=== PATIENT | male | born 1955 | race Caucasian/White ===

== ENCOUNTER 2016-08-15 12:00 | Emergency (ER) | payer BC ==
[2016-08-15 12:21] VITALS: BP 136/66
--- NOTE | 2016-08-15 12:30 | UC ---
Respiratory Complaint HPI - HPI Summary HPI Summary: Worsening cough, nasal drainage and chest congestion over the past week---awake at night coughing not sure about a fever - History of Current Complaint Chief Complaint: UCUpperExtremity Stated Complaint: ST/COUGH Time Seen by Provider: 08/15/16 12:07 Hx Obtained From: Patient Onset/Duration: Gradual Onset, Lasting Weeks - 1, Still Present Timing: Constant Severity Initially: Moderate Severity Currently: Moderate Character: Cough: Nonproductive Aggravating Factors: Recumbent Position Alleviating Factors: Upright Position Associated Signs And Symptoms: Positive: Nasal Congestion, Sinus Discomfort - Allergies/Home Medications Allergies/Adverse Reactions: Allergies Allergy/AdvReac Type Severity Reaction Status Date / Time Penicillins Allergy Intermediate Rash Verified 08/15/16 12:14 Home Medications: Home Medications Acetaminophen TAB* [Tylenol TAB*] 650 mg PO Q4H PRN 08/15/16 [History Confirmed 08/15/16] PMH/Surg Hx/FS Hx/Imm Hx Previously Healthy: Yes - Surgical History Surgical History: None - Family History Known Family History: Positive: None Family History: no known cardio vascular issues in family lineage - Social History Occupation: Retired - from [employer] Lives: With Family Alcohol Use: None Substance Use Type: None Smoking Status (MU): Former Smoker When Did the Patient Quit Smoking/Using Tobacco: AGE 16 Household Exposure Type: Cigarettes - Immunization History Most Recent Influenza Vaccination: FEB 2016 Review of Systems Constitutional: Negative Skin: Negative Eyes: Negative ENT: Sore Throat, Nasal Discharge Respiratory: Cough Cardiovascular: Negative Gastrointestinal: Negative Genitourinary: Negative Motor: Negative Neurovascular: Negative Musculoskeletal: Negative Neurological: Negative Psychological: Negative All Other Systems Reviewed And Are Negative: Yes Physical Exam Triage Information Reviewed: Yes Appearance: No Pain Distress, Ill-Appearing - appears older than stated age, Obese Vital Signs: Initial Vital Signs Temp 98.5 F 08/15/16 12:15 Pulse 84 08/15/16 12:15 Resp 20 08/15/16 12:15 BP 136/66 08/15/16 12:15 Pulse Ox 97 08/15/16 12:15 Vital Signs Reviewed: Yes Eye Exam: Normal Eyes: Positive: Conjunctiva Clear ENT Exam: Normal ENT: Positive: Normal ENT inspection, Hearing grossly normal, Pharynx normal, Nasal congestion, Nasal drainage, TMs normal. Negative: Tonsillar swelling, Tonsillar exudate, Trismus, Muffled/hoarse voice Dental Exam: Normal Neck exam: Normal Neck: Positive: Supple, Nontender, No Lymphadenopathy Respiratory Exam: Normal Respiratory: Positive: Chest non-tender, Lungs clear, Normal breath sounds, No respiratory distress, No accessory muscle use Cardiovascular Exam: Normal Cardiovascular: Positive: RRR, No Murmur, Pulses Normal, Brisk Capillary Refill Musculoskeletal Exam: Normal Musculoskeletal: Positive: Strength Intact, ROM Intact, No Edema Neurological Exam: Normal Neurological: Positive: Alert, Muscle Tone Normal Psychological Exam: Normal Skin Exam: Normal UC Diagnostic Evaluation - Laboratory O2 Sat by Pulse Oximetry: 97 Respiratory Course/Dx - Course Course Of Treatment: Zithromax, tessalon, albuterol, flonase, increase fluids, follow with PCP - Differential Dx/Diagnosis Differential Diagnosis/HQI/PQRI: Asthma, Bronchitis, Laryngitis, Lower Resp Infection, Sinusitis, Tuberculosis Provider Diagnoses: Bronchitis Discharge - Discharge Plan Condition: Stable Disposition: HOME Prescriptions: Albuterol HFA INHALER* [Ventolin HFA Inhaler*] 2 puff INH Q4H PRN #1 mdi PRN Reason: Cough Azithromycin TAB* [Zithromax TAB (Z-CONNOR) 250 mg #6 tabs] 2 tab PO .TODAY, THEN 1 DAILY #1 connor Benzonatate CAP* [Tessalon CAP*] 100 mg PO TID PRN #30 cap PRN Reason: Cough Fluticasone NASAL SPRAY 50MCG* [Flonase NASAL SPRAY 50MCG*] 2 spray BOTH NARES DAILY #1 btl Patient Education Materials: How to Use a Metered-Dose Inhaler (ED), Bronchospasm (ED), Acute Cough (ED), Safe Use of Cough and Cold Medicines (ED) Referrals: Chanel Streeter MD [Primary Care Provider] - 1 Week
== END 2016-08-15 12:56 | disposition home or self-care (01) ==
LOC: UCCORT 12:00
DX: J40 Bronchitis, not specified as acute or chronic (principal); E66.9 Obesity, unspecified; Z87.891 Personal history of nicotine dependence; Z88.0 Allergy status to penicillin
CPT/HCPCS: 99202; G0463

== ENCOUNTER 2016-11-18 14:25 | Emergency (ER) | payer BC ==
[2016-11-18 15:13] VITALS: BP 132/81
--- NOTE | 2016-11-18 15:35 | UC ---
Back Pain HPI - HPI Summary HPI Summary: 61 yo M with low back pain x 5 days. Hx back injury a long time ago, but states this time can't think of anything he did to cause the pain. No urinary symptoms. No hematuria or hematochezia or melena. No abd pain. No N,V. Pain is just in the back, does not go down his legs. Has tried ibuprofen and tylenol without relief. Feels like muscle spasms. Is retired. - History of Current Complaint Chief Complaint: UCBackPain Stated Complaint: LOW BACK PAIN/SPASMS Time Seen by Provider: 11/18/16 15:10 Hx Obtained From: Patient Onset/Duration: Gradual Onset, Lasting Days, Still Present Timing: Constant Severity Initially: Moderate Severity Currently: Moderate Pain Intensity: 10 - decreases to 4-5 with meds Pain Scale Used: 0-10 Numeric Back Pain: Is Discrete @ - low lumbar Character: Spasmodic Aggravating: Movement Alleviating: Nothing Associated Signs And Symptoms: Negative: Swelling, Redness, Bruising, Fever, Numbness, Tingling, Abdominal Pain, Flank Pain, Bladder Incontinence, Bowel Incontinence Related History: Previous Back Injury - Allergies/Home Medications Allergies/Adverse Reactions: Allergies Allergy/AdvReac Type Severity Reaction Status Date / Time Penicillins Allergy Intermediate Rash Verified 11/18/16 15:06 Home Medications: Home Medications Aspirin [Aspirin 81 MG TAB] 81 mg PO DAILY 11/18/16 [History Confirmed 11/18/16] Ibuprofen [Ibuprofen 200 MG] 400 mg PO Q6HR PRN 11/18/16 [History Confirmed ] PMH/Surg Hx/FS Hx/Imm Hx Previously Healthy: Yes - Surgical History Surgical History: None - Family History Known Family History: Positive: Other - cancer in father, Family History: no known cardio vascular issues in family lineage - Social History Occupation: Retired Alcohol Use: None Substance Use Type: None Smoking Status (MU): Never Smoked Tobacco When Did the Patient Quit Smoking/Using Tobacco: AGE 16 Household Exposure Type: Cigarettes - Immunization History Most Recent Influenza Vaccination: FEB 2016 Review of Systems Constitutional: Negative Skin: Negative Eyes: Negative ENT: Negative Respiratory: Negative Cardiovascular: Negative Gastrointestinal: Negative Genitourinary: Negative Motor: Negative Neurovascular: Negative Musculoskeletal: Arthralgia Neurological: Negative Psychological: Negative All Other Systems Reviewed And Are Negative: Yes Physical Exam Triage Information Reviewed: Yes Appearance: Well-Appearing, Well-Nourished, Pain Distress Vital Signs: Initial Vital Signs Temp 98.9 F 11/18/16 15:00 Pulse 82 11/18/16 15:00 Resp 14 11/18/16 15:00 BP 132/81 11/18/16 15:00 Pulse Ox 99 11/18/16 15:00 Vital Signs Reviewed: Yes ENT: Positive: Hearing grossly normal. Negative: Muffled/hoarse voice Neck: Positive: Supple, Nontender Respiratory: Positive: Lungs clear, Normal breath sounds, No respiratory distress Cardiovascular: Positive: RRR, Pulses Normal, Brisk Capillary Refill Abdomen Description: Positive: Nontender, No Organomegaly, Soft. Negative: CVA Tenderness (R), CVA Tenderness (L), Distended, Guarding, Hepatomegaly, McBurney' s Point Tenderness, Peritoneal Signs, Pulsatile Mass, Splenomegaly Bowel Sounds: Positive: Present Musculoskeletal: Positive: Strength Intact, ROM Intact, Other: - pain right paraspinous, no spinal tenderness Neurological: Positive: Alert, Muscle Tone Normal Psychological Exam: Normal Skin Exam: Normal Back Pain Course/Dx - Course Course Of Treatment: UA neg. will treat as musculoskeletal back pain - Differential Dx/Diagnosis Differential Diagnosis/HQI/PQRI: Herniated Disc, Renal Colic, Strain, Sprain Provider Diagnoses: acute lumbosacral strain. elevated BP without dx of HTN Discharge - Discharge Plan Condition: Stable Disposition: HOME Prescriptions: Cyclobenzaprine TAB* [Flexeril 10 MG TAB*] 10 mg PO TID PRN #20 tab PRN Reason: Pain HYDROcodone/ACETAMIN 5-325 MG* [[place] 5-325 TAB*] 1 tab PO Q4H PRN #18 tab MDD 6 PRN Reason: Pain Patient Education Materials: Low Back Strain (ED) Referrals: Chanel Streeter MD [Primary Care Provider] - 2 Days Additional Instructions: Your blood pressure was mildly elevated today. Please be sure to have this checked within a month. Follow up with Dr. Streeter regarding today's visit. Your urine sample was normal today. [facility] is open until 5 pm today. You may start your medications today. You may want to start with cyclobenzaprine first, and then if still with pain, can take the hydrocodone/acetaminophen. Return to urgent care if any new or worsening symptoms.
== END 2016-11-18 16:10 | disposition home or self-care (01) ==
LOC: UCCORT 14:25
DX: S39.012A Strain of muscle, fascia and tendon of lower back, initial encounter (principal); R03.0 Elevated blood-pressure reading, without diagnosis of hypertension; X58.XXXA Exposure to other specified factors, initial encounter; Z88.0 Allergy status to penicillin; Z79.82 Long term (current) use of aspirin
CPT/HCPCS: 81003; 99212; G0463

== ENCOUNTER 2019-02-25 12:05 | Emergency (ER) | payer MEDICARE, BC ==
[2019-02-25 13:10] VITALS: BP 159/81
--- NOTE | 2019-02-25 13:16 | UC ---
Abdominal Pain Male HPI - HPI Summary HPI Summary: 63 yo man wiith diabetes and history of pancreatitis, presents with 48 hours of progressive increase in upper abdominal pain,inthe epigastric and right upper quadrant. He has had small amount of emesis today, with persistent nausea and dry heaves. No radiation of pain. Appetite decreased. No urinary symptoms. Last passed stools x 2 on 02/23/19. No relief of pain with ibuprofen or acetaminophen. - History of Current Complaint Chief Complaint: UCAbdominalPain Stated Complaint: RIGHT SIDE PAIN Time Seen by Provider: 02/25/19 13:15 Hx Obtained From: Patient Onset/Duration: Gradual Onset, Lasting Days - 2, Worse Since - overnight, could not sleep due to pain Timing: Constant Severity Initially: Moderate Severity Currently: Moderate Pain Intensity: 8 Location: Discrete At: RUQ, Epigastric Radiates: No Character: Dull Aggravating Factor(s): Food, Movement Alleviating Factor(s): Rest Associated Signs And Symptoms: Positive: Decreased Appetite, Nausea, Vomiting. Negative: Diaphoresis, Fever, Back Pain, Constipation, Blood in Stool, Urinary Symptoms, Diarrhea - Allergies/Home Medications Allergies/Adverse Reactions: Allergies Allergy/AdvReac Type Severity Reaction Status Date / Time Penicillins Allergy Unknown Rash Verified 02/25/19 13:02 Home Medications: Home Medications Sitagliptin Phos/Metformin HCl [Janumet 50-1000 mg] 1 tab PO DAILY 02/25/19 [ History Confirmed 02/25/19] PMH/Surg Hx/FS Hx/Imm Hx - Additional Past Medical History Additional PMH: obese Endocrine History: Diabetes - Surgical History Surgical History: None - Family History Known Family History: Positive: Other - cancer in father, Family History: no known cardio vascular issues in family lineage - Social History Occupation: Retired Lives: With Family Alcohol Use: None Substance Use Type: None Smoking Status (MU): Former Smoker When Did the Patient Quit Smoking/Using Tobacco: AGE 16 Household Exposure Type: Cigarettes - Immunization History Most Recent Influenza Vaccination: FEB 2016 Review of Systems All Other Systems Reviewed And Are Negative: Yes Constitutional: Positive: Negative Skin: Positive: Negative Eyes: Positive: Negative ENT: Positive: Negative Respiratory: Negative: Shortness Of Breath, Cough Cardiovascular: Negative: Palpitations, Chest Pain Gastrointestinal: Positive: Abdominal Pain, Vomiting, Nausea Genitourinary: Negative: Dysuria, Hematuria, Frequency, Urgency Motor: Positive: Negative Neurovascular: Positive: Negative Musculoskeletal: Positive: Negative Neurological: Negative: Headache Psychological: Positive: Negative Is Patient Immunocompromised?: No Physical Exam Triage Information Reviewed: Yes Appearance: Ill-Appearing, Pain Distress - moderate, Obese, Other: - no jaundice. Vital Signs: Initial Vital Signs Temp 98.5 F 02/25/19 13:05 Pulse 89 02/25/19 13:05 Resp 18 02/25/19 13:05 BP 159/81 02/25/19 13:05 Pulse Ox 98 02/25/19 13:05 Eyes: Positive: Conjunctiva Clear ENT Exam: Other - No cleral icterus. ENT: Positive: Pharynx normal Neck: Positive: Supple, Nontender, No Lymphadenopathy Respiratory: Positive: Lungs clear, Normal breath sounds Cardiovascular: Positive: RRR, No Murmur Abdomen Description: Positive: Soft, Distended - mild distentin, Other: - tender in epigastrium and along medial border of liver.. Negative: CVA Tenderness (R), CVA Tenderness (L), Hernia @, Splenomegaly Bowel Sounds: Positive: Hypoactive Musculoskeletal Exam: Normal Musculoskeletal: Positive: Strength Intact Neurological: Positive: Alert, Muscle Tone Normal Psychological Exam: Normal Skin Exam: Normal Diagnostics - EKG Cardiac Rate: NL Cardiac Rhythm: Sinus: Normal Ectopy: None ST Segment: Non-Specific Abd Pain Male Course/Dx - Course Course Of Treatment: Given history of pancreatitis, progressive increase in pain and vomiting, advised ER evaluation. Spoke with Mr. Holman and his , and Mrs. Holman will take him to the emergency room immediately. - Differential Dx/Clinical Impression Differential Diagnosis/HQI/PQRI: ACS, Gall Bladder Disease, Hepatitis, Ischemic Bowel, Pancreatitis, Renal Colic Provider Diagnosis: Right upper quadrant abdominal pain - Physician Notification/Consults Discussed Patient Care With: [facility] - Sign-Out/Discharge Documenting (check all that apply): Patient Departure All imaging exams completed and their final reports reviewed: No Studies - Discharge Plan Condition: Stable Disposition: [facility] Patient Education Materials: Acute Abdominal Pain (ED) Referrals: Chanel Streeter MD [Primary Care Provider] - Additional Instructions: Please go straight to the emergency for assessment of your abdominal pain, which could be due to gallbladder disease or pancreatitis. Emergency room assessment is necessary to distinguish this. Do not eat or drink until you are assessed in the ER - Billing Disposition and Condition Condition: STABLE Disposition: [facility]
== END 2019-02-25 13:42 | disposition short-term general hospital (02) ==
LOC: UCCORT 12:05
DX: R10.11 Right upper quadrant pain (principal); E11.9 Type 2 diabetes mellitus without complications; Z87.891 Personal history of nicotine dependence
CPT/HCPCS: 93005; 99212; G0463